=== PATIENT | female | born 1995 | race African-American/Black ===

== ENCOUNTER → 2023-12-05 | Outpatient (CLI) | payer OTHER | LOC: MHCPAIN 15:11 | DX: M54.6 Pain in thoracic spine (principal); M25.512 Pain in left shoulder; M79.18 Myalgia, other site | CPT/HCPCS: G0463 ==

== ENCOUNTER → 2023-12-27 | Outpatient (CLI) | payer OTHER | LOC: MHCPAIN 13:34 | DX: M79.18 Myalgia, other site (principal); M54.2 Cervicalgia | CPT/HCPCS: J0665; J1040 ==

== ENCOUNTER → 2024-01-24 | Outpatient (CLI) | payer OTHER | LOC: MHCPAIN 14:10 | DX: M54.2 Cervicalgia (principal); G89.29 Other chronic pain | CPT/HCPCS: G0463 ==